=== PATIENT | female | born 1945 | race Caucasian/White ===

== ENCOUNTER 2016-09-26 17:16 | Emergency (ER) | payer MEDICARE, MEDICAID ==
[~2016-09-26] VITALS: Ht 165.1 cm; Wt 89.4 kg
[~2016-09-26 17:16] MED LIST: BACTRIM DS 8001 TA1 PO; BIAXIN500 MG PO; BRIN20TA PO; CLARITIN10 MG PO; CYMBALTA20 MG PO; DOXYCYCLINE100 M3 PO; HYDROCODONE BIT1 T11 PO; MACROBID100 M1 PO; NAPROSYN500 MG PO; NEURONTIN300 MG PO; NEXIUM20 MG PO; NEXIUM40 MG PO; NORCO 5-325 TA1 EACH PO; REXULTI1 MG PO; RITALIN10 MG PO; SYNTHROID,LEV100 MCG PO; ULTRAM50 MG PO; VICODIN 5/500 505 MG PO; VICODIN ES 7501 TAB PO; VISTARIL50 MG PO; VOLTAREN50 MG PO; ZOFRAN4 MG PO; Zofran4 MG PO
[2016-09-26] MEDS ORDERED: CONCERTA54 MG PO (17:28)
[2016-09-26] MEDS ORDERED: 'PARAFON FORTE500 M1 PO (17:35)
[2016-09-26] MEDS ORDERED: NAPROSYN500 MG PO (17:35)
[2016-09-26 18:03] LABS: BILIRUBIN 1+ (NEGATIVE); BLOOD NEGATIVE (NEGATIVE); CLARITY CLEAR (CLEAR); COLOR YELLOW (YELLOW); GLUCOSE NEGATIVE (NEGATIVE); KETONE TRACE (NEGATIVE); LEUKO ESTERASE NEGATIVE (NEGATIVE); NITRITE POSITIVE (NEGATIVE); PROTEIN TRACE (NEGATIVE); SPECIFIC GRAVITY >= 1.030 (1.005-1.030)
[2016-09-26 18:25] LABS: BACTERIA TRACE; WBC 0-2 wbc/hpf (0-5)
[2016-09-26 18:26] LABS: URINE REFLEX COMMENT YES (NO)
[2016-09-26] MEDS ORDERED: MACROBID100 M1 PO (18:27)
[2016-09-26] MEDS ORDERED: DIFLUCAN150 MG PO (18:27)
== END 2016-09-26 18:52 | disposition home or self-care (01) ==
LOC: ED 17:16
PROVIDERS: Nurse Practitioner Family
DX: N39.0 Urinary tract infection, site not specified (principal); M54.42 Lumbago with sciatica, left side; R03.0 Elevated blood-pressure reading, without diagnosis of hypertension; Z88.0 Allergy status to penicillin; Z79.899 Other long term (current) drug therapy

== ENCOUNTER → 2017-03-24 | Outpatient (CLI) | payer MEDICARE, MEDICAID ==
[~2017-03-24] MED LIST changes: +'PARAFON FORTE500 M1 PO; +CONCERTA54 MG PO; +DIFLUCAN150 MG PO
== END | disposition home or self-care (01) ==
LOC: ORTHO 03:18
DX: M19.042 Primary osteoarthritis, left hand (principal); M85.442 Solitary bone cyst, left hand

== ENCOUNTER → 2017-06-04 | Outpatient (CLI) | payer MEDICARE ==
[~2017-06-04] MED LIST changes: +FOCALIN XR10 MG PO; +LEVOTHYROXINE150 MCG PO; +TRINTELLIX20 MG PO
[2017-06-04 10:22] LABS: BASO % 0.6 % (0.0-1.0); EOS # 0.2 10*3/uL (0.0-0.4); EOS % 3.8 % (1.0-4.0); HEMATOCRIT 37.1 % (37.0-47.0); HEMOGLOBIN 12.4 g/dl (12.0-16.0); LYMPH # 2.3 10*3/uL (1.3-4.4); LYMPH % 36.5 % (27.0-41.0); MEAN CELL VOLUME 95.4 fl (81.0-99.0); MEAN CORPUSCULAR HGB 31.9 pg (27.0-31.0); MEAN CORPUSCULAR HGB CONC 33.4 g/dl (33.0-37.0); MEAN PLATELET VOLUME 9.2 fl (9.6-12.3); MONO # 0.5 10*3/uL (0.1-1.0); MONO % 7.4 % (3.0-9.0); NEUT # 3.3 10*3/uL (2.3-7.9); NEUT % 51.4 % (47.0-73.0); PLATELET COUNT AUTOMATED 232 10*3/uL (130-400); RED BLOOD COUNT 3.89 10*6/uL (4.10-5.10); RED CELL DISTRI WIDTH 12.8 % (0-14.5); WHITE BLOOD COUNT 6.3 10*3/uL (4.8-10.8)
[2017-06-04 10:49] LABS: BUN 23 mg/dl (7-24); CHLORIDE 108 mmol/L (98-107); CREATININE 0.97 mg/dL (0.55-1.02); SODIUM 142 mmol/L (136-145)
== END | disposition home or self-care (01) ==
LOC: LAB 08:07
PROVIDERS: Orthopaedic Surgery
DX: Z01.818 Encounter for other preprocedural examination (principal); J98.11 Atelectasis; G56.02 Carpal tunnel syndrome, left upper limb; E55.9 Vitamin D deficiency, unspecified

== ENCOUNTER → 2017-06-10 | Day surgery (SDC) | payer MEDICARE ==
[~2017-06-10] VITALS: Ht 165.1 cm; Wt 86.2 kg
[2017-06-10 07:19] VITALS: BP 140/71
[2017-06-10 09:00] VITALS: BP 132/87
[2017-06-10 09:15] VITALS: BP 143/74
[2017-06-10 09:30] VITALS: BP 130/77
== END | disposition home or self-care (01) ==
LOC: SDC 06-04 08:45
DX: G56.02 Carpal tunnel syndrome, left upper limb (principal); K21.9 Gastro-esophageal reflux disease without esophagitis; F41.9 Anxiety disorder, unspecified; F32.9 Major depressive disorder, single episode, unspecified; E03.9 Hypothyroidism, unspecified; Z98.890 Other specified postprocedural states; Z90.710 Acquired absence of both cervix and uterus

== ENCOUNTER → 2017-10-29 | Outpatient (CLI) | payer MEDICARE | END | disposition home or self-care (01) | LOC: D 10:36 | DX: E66.3 Overweight (principal); Z68.35 Body mass index [BMI] 35.0-35.9, adult ==

== ENCOUNTER 2017-12-02 21:09 | Emergency (ER) | payer MEDICARE ==
[~2017-12-02] VITALS: Ht 165.1 cm; Wt 86.2 kg
[2017-12-02 21:40] LABS: BASO # 0.1 10*3/uL (0.0-0.1); EOS # 0.3 10*3/uL (0.0-0.4); EOS % 3.8 % (1.0-4.0); HEMATOCRIT 34.6 % (37.0-47.0); HEMOGLOBIN 11.4 g/dl (12.0-16.0); LYMPH % 43.4 % (27.0-41.0); MEAN CELL VOLUME 97.5 fl (81.0-99.0); MEAN CORPUSCULAR HGB 32.1 pg (27.0-31.0); MEAN CORPUSCULAR HGB CONC 32.9 g/dl (33.0-37.0); MEAN PLATELET VOLUME 8.3 fl (9.6-12.3); MONO # 0.6 10*3/uL (0.1-1.0); NEUT # 2.9 10*3/uL (2.3-7.9); NEUT % 42.5 % (47.0-73.0); PLATELET COUNT AUTOMATED 224 10*3/uL (130-400); RED BLOOD COUNT 3.55 10*6/uL (4.10-5.10); RED CELL DISTRI WIDTH 13.2 % (0-14.5); WHITE BLOOD COUNT 6.9 10*3/uL (4.8-10.8)
[2017-12-02 21:55] LABS: ALBUMIN 3.4 gm/dl (3.1-4.5); ALKALINE PHOSPHATASE 72 U/L (45-117); BUN 25 mg/dl (7-24); CHLORIDE 108 mmol/L (98-107); CREATININE 0.83 mg/dL (0.55-1.02); POTASSIUM 4.2 mmol/L (3.5-5.1); SGOT/AST 14 IU/L (3-35); SGPT/ALT 15 U/L (12-78); SODIUM 143 mmol/L (136-145); TOTAL PROTEIN 6.7 gm/dL (6.4-8.2)
[2017-12-02 22:37] LABS: BILIRUBIN 1+ (NEGATIVE); BLOOD 3+ (NEGATIVE); CLARITY CLOUDY (CLEAR); COLOR YELLOW (YELLOW); GLUCOSE NEGATIVE (NEGATIVE); KETONE NEGATIVE (NEGATIVE); LEUKO ESTERASE NEGATIVE (NEGATIVE); NITRITE NEGATIVE (NEGATIVE); SPECIFIC GRAVITY >= 1.030 (1.005-1.030); UROBILINOGEN 0.2 E.U./dl (0.2-1.0)
[2017-12-02 22:55] LABS: YEAST 1+
[2017-12-02 22:56] LABS: RBC 21-30 rbc/hpf (0-2)
[2017-12-02] MEDS ORDERED: DIFLUCAN150 MG PO (23:00)
[2017-12-02] MEDS ORDERED: MACROBID100 M1 PO (23:00)
[2017-12-02] MEDS ORDERED: MYCOLOG CREAM 115 GM T (23:00)
== END 2017-12-02 23:42 | disposition home or self-care (01) ==
LOC: ED 21:09
PROVIDERS: Nurse Practitioner Family
DX: N39.0 Urinary tract infection, site not specified (principal); B37.9 Candidiasis, unspecified; Z88.0 Allergy status to penicillin

== ENCOUNTER 2018-03-10 09:40 | Emergency (ER) | payer MEDICARE ==
[~2018-03-10] VITALS: Wt 86.2 kg
[~2018-03-10 09:40] MED LIST changes: +MYCOLOG CREAM 115 GM T
== END 2018-03-10 11:27 | disposition home or self-care (01) ==
LOC: ED 09:40
DX: S63.502A Unspecified sprain of left wrist, initial encounter (principal); Z88.0 Allergy status to penicillin; Z79.899 Other long term (current) drug therapy; W01.0XXA Fall on same level from slipping, tripping and stumbling without subsequent striking against object, initial encounter; Y93.01 Activity, walking, marching and hiking; Y92.009 Unspecified place in unspecified non-institutional (private) residence as the place of occurrence of the external cause; Y99.8 Other external cause status

== ENCOUNTER 2018-12-20 15:58 | Emergency (ER) | payer MEDICARE ==
[~2018-12-20] VITALS: Ht 165.1 cm; Wt 86.2 kg
--- NOTE | ~2018-12-20 | EKG ---
[place], [place] ELECTROCARDIOGRAM REPORT NAME: NASIM BONILLA UNIT #: [id number] ROOM: DOCTOR: EPIPHANY DRAFT REPORT BIRTHDATE: [birth year] [facility] Test Date: 2018-12-20 Test Time: 16:30:32 Pat Name: NASIM BONILLA Department: Room: Gender: [employer] Department Chair: : 1945 Requested By: LANI MURPHY DNP Order Number: [id number] Reading MD: Kameron Kenny MD Measurements Intervals [place] Rate: 84 P: -5 MI: 164 QRS: 19 QRSD: 86 T: 18 QT: 361 QTc: 427 Interpretive Statements Sinus rhythm Baseline wander in lead(s) II,III,aVR,aVL,aVF,V1 Compared to ECG 08/29/2018 07:35:20 Atrial premature complex(es) no longer present T-wave abnormality no longer present Electronically Signed On 12-21-2018 9:40:33 PDT by Kameron Kenny MD CM:EKGRPT:ELECTROCARDIOGRAM REPORT [id number] LANI MURPHY DNP EPIPHANY DRAFT REPORT LANI MURPHY DNP
[~2018-12-20 15:58] MED LIST changes: +CYMBALTA30 MG PO; +ZANAFLEX4 M1 PO
[2018-12-20 16:42] LABS: BASO % 0.5 % (0.0-1.0); EOS % 0.4 % (1.0-4.0); HEMATOCRIT 36.2 % (37.0-47.0); HEMOGLOBIN 11.9 g/dl (12.0-16.0); LYMPH # 1.2 10*3/uL (1.3-4.4); MEAN CELL VOLUME 95.3 fl (81.0-99.0); MEAN CORPUSCULAR HGB 31.3 pg (27.0-31.0); MEAN CORPUSCULAR HGB CONC 32.9 g/dl (33.0-37.0); MEAN PLATELET VOLUME 9.2 fl (9.6-12.3); MONO # 0.4 10*3/uL (0.1-1.0); MONO % 4.6 % (3.0-9.0); NEUT # 6.4 10*3/uL (2.3-7.9); NEUT % 79.3 % (47.0-73.0); PLATELET COUNT AUTOMATED 230 10*3/uL (130-400); RED CELL DISTRI WIDTH 12.8 % (0-14.5); WHITE BLOOD COUNT 8.1 10*3/uL (4.8-10.8)
[2018-12-20 16:51] LABS: ACT PARTIAL THROMBO TIME 24.2 SECONDS (20.8-31.5); INTERNATIONAL NORM RATIO 0.9 (2.0-3.5)
[2018-12-20 16:58] LABS: ALBUMIN 3.4 gm/dl (3.1-4.5); ALKALINE PHOSPHATASE 94 U/L (45-117); BUN 16 mg/dl (7-24); CHLORIDE 106 mmol/L (98-107); CREATININE 0.85 mg/dL (0.55-1.02); LIPASE 44 U/L (73-393); POTASSIUM 4.5 mmol/L (3.5-5.1); SGOT/AST 18 IU/L (3-35); SGPT/ALT 19 U/L (12-78); SODIUM 140 mmol/L (136-145)
[2018-12-20 17:00] LABS: TROPONIN I < 0.015 ng/ml (<0.045)
== END 2018-12-20 18:05 | disposition short-term general hospital (02) ==
LOC: ED 15:58
PROVIDERS: Nurse Practitioner Family
DX: R53.1 Weakness (principal); R47.81 Slurred speech; J02.9 Acute pharyngitis, unspecified; R06.02 Shortness of breath; E03.9 Hypothyroidism, unspecified; K21.9 Gastro-esophageal reflux disease without esophagitis; G89.29 Other chronic pain; Z88.0 Allergy status to penicillin; Z79.899 Other long term (current) drug therapy; Z90.710 Acquired absence of both cervix and uterus

== ENCOUNTER → 2021-08-23 | Outpatient (CLI) | payer MEDICARE, MEDICAID | END | disposition home or self-care (01) | LOC: RAD 10:58 | PROVIDERS: ATTEND Emergency Medicine | DX: M19.022 Primary osteoarthritis, left elbow (principal) ==

== ENCOUNTER → 2021-10-17 | Outpatient (CLI) | payer MEDICARE, MEDICAID | END | disposition home or self-care (01) | LOC: ORTHO 01:56 | PROVIDERS: ATTEND Orthopaedic Surgery | DX: M79.642 Pain in left hand (principal) ==

== ENCOUNTER → 2021-11-06 | Day surgery (SDC) | payer MEDICARE, MEDICAID ==
[2021-11-03 12:11] LABS: BASO # 0.1 10*3/uL (0.0-0.1); BASO % 1.1 % (0.0-1.0); EOS # 0.2 10*3/uL (0.0-0.4); EOS % 3.7 % (1.0-4.0); HEMATOCRIT 39.7 % (37.0-47.0); LYMPH # 1.9 10*3/uL (1.3-4.4); MEAN CELL VOLUME 93.4 fl (81.0-99.0); MEAN CORPUSCULAR HGB 30.8 pg (27.0-31.0); MEAN PLATELET VOLUME 9.2 fl (9.6-12.3); MONO # 0.4 10*3/uL (0.1-1.0); NEUT # 3.1 10*3/uL (2.3-7.9); NEUT % 54.8 % (47.0-73.0); PLATELET COUNT AUTOMATED 275 10*3/uL (130-400); RED BLOOD COUNT 4.25 10*6/uL (4.10-5.10); RED CELL DISTRI WIDTH 12.8 % (0-14.5); WHITE BLOOD COUNT 5.6 10*3/uL (4.8-10.8)
[2021-11-03 12:57] LABS: BUN 16 mg/dl (7-24); CHLORIDE 110 mmol/L (98-107); POTASSIUM 3.8 mmol/L (3.5-5.1); SODIUM 142 mmol/L (136-145)
[~2021-11-06] VITALS: Ht 165.1 cm; Wt 86.2 kg
[~2021-11-06] MED LIST changes: +CYMBALTA60 MG PO; +GABAPENTIN600 MG PO; +LEVOTHYROXINE175 MCG PO; +OXAYDO7.5 MG PO
[2021-11-06 07:12] VITALS: BP 142/75
[2021-11-06 08:32] VITALS: BP 121/76
[2021-11-06 08:47] VITALS: BP 120/76
[2021-11-06 09:02] VITALS: BP 137/75
== END | disposition home or self-care (01) ==
LOC: SDC 11-03 13:00
PROVIDERS: ATTEND Orthopaedic Surgery
DX: M65.331 Trigger finger, right middle finger (principal); M65.841 Other synovitis and tenosynovitis, right hand; M19.032 Primary osteoarthritis, left wrist; F32.9 Major depressive disorder, single episode, unspecified; F41.9 Anxiety disorder, unspecified; K21.9 Gastro-esophageal reflux disease without esophagitis; M79.7 Fibromyalgia; E03.9 Hypothyroidism, unspecified; Z86.73 Personal history of transient ischemic attack (TIA), and cerebral infarction without residual deficits; Z20.822 Contact with and (suspected) exposure to COVID-19; Z79.899 Other long term (current) drug therapy

== ENCOUNTER → 2021-12-10 | Outpatient (CLI) | payer MEDICARE, MEDICAID | END | disposition home or self-care (01) | LOC: RAD 12:04 | PROVIDERS: ATTEND Nurse Practitioner Gerontology | DX: M50.10 Cervical disc disorder with radiculopathy, unspecified cervical region (principal) ==

== ENCOUNTER → 2021-12-23 | Outpatient (CLI) | payer MEDICARE, MEDICAID | END | disposition home or self-care (01) | LOC: RAD 09:01 | PROVIDERS: ATTEND Emergency Medicine | DX: M17.0 Bilateral primary osteoarthritis of knee (principal) ==

== ENCOUNTER 2022-01-17 14:14 | Emergency (ER) | payer MEDICARE ==
[~2022-01-17] VITALS: Ht 165.1 cm; Wt 88.5 kg
[2022-01-17] MEDS ORDERED: VOLTAREN ARTHRI20 GM T (15:54)
== END 2022-01-17 16:09 | disposition home or self-care (01) ==
LOC: ED 14:14
DX: M25.561 Pain in right knee (principal); M79.651 Pain in right thigh; G89.29 Other chronic pain; Z98.890 Other specified postprocedural states; Z90.710 Acquired absence of both cervix and uterus; Z79.899 Other long term (current) drug therapy; Z88.0 Allergy status to penicillin

== ENCOUNTER → 2022-02-04 | Outpatient (CLI) | payer MEDICARE, MEDICAID ==
[~2022-02-04] MED LIST changes: +VOLTAREN ARTHRI20 GM T
== END | disposition home or self-care (01) ==
LOC: MRI 08:12
PROVIDERS: ATTEND Nurse Practitioner Gerontology
DX: M47.812 Spondylosis without myelopathy or radiculopathy, cervical region (principal); M48.02 Spinal stenosis, cervical region

== ENCOUNTER 2022-03-19 14:11 | Emergency (ER) | payer OTHER ==
[~2022-03-19] VITALS: Ht 165.1 cm; Wt 89.8 kg
[2022-03-19] MEDS ORDERED: CITALOPRAM20 MG PO (14:29)
[2022-03-19] MEDS ORDERED: OXYCODONE-ACET1 EACH PO (14:30)
[2022-03-19] MEDS ORDERED: IBUPROFEN600 MG PO (17:51)
== END 2022-03-19 17:55 | disposition home or self-care (01) ==
LOC: ED 14:11
DX: S52.514A Nondisplaced fracture of right radial styloid process, initial encounter for closed fracture (principal); Z88.0 Allergy status to penicillin; Z79.899 Other long term (current) drug therapy; Z90.710 Acquired absence of both cervix and uterus; Z90.89 Acquired absence of other organs; Z98.890 Other specified postprocedural states; W18.39XA Other fall on same level, initial encounter; Y93.89 Activity, other specified; Y92.89 Other specified places as the place of occurrence of the external cause; Y99.8 Other external cause status

== ENCOUNTER → 2022-03-23 | Outpatient (CLI) | payer OTHER ==
[~2022-03-23] MED LIST changes: +CITALOPRAM20 MG PO; +IBUPROFEN600 MG PO; +OXYCODONE-ACET1 EACH PO
== END | disposition home or self-care (01) ==
LOC: RAD 14:29
PROVIDERS: ATTEND Orthopaedic Surgery
DX: M25.421 Effusion, right elbow (principal)

== ENCOUNTER → 2022-04-03 | Outpatient (CLI) | payer OTHER | END | disposition home or self-care (01) | LOC: ORTHO 00:42 | PROVIDERS: ATTEND Orthopaedic Surgery | DX: M79.601 Pain in right arm (principal) ==

== ENCOUNTER → 2022-04-17 | Outpatient (CLI) | payer OTHER | END | disposition home or self-care (01) | LOC: ORTHO 02:15 | PROVIDERS: ATTEND Orthopaedic Surgery | DX: S52.131D Displaced fracture of neck of right radius, subsequent encounter for closed fracture with routine healing (principal); X58.XXXD Exposure to other specified factors, subsequent encounter ==

== ENCOUNTER → 2022-06-16 | Outpatient (CLI) | payer OTHER | END | disposition home or self-care (01) | LOC: MAMMO 10:50 | PROVIDERS: ATTEND Emergency Medicine | DX: Z12.31 Encounter for screening mammogram for malignant neoplasm of breast (principal) ==

== ENCOUNTER 2022-07-31 10:10 | Emergency (ER) | payer OTHER ==
[~2022-07-31] VITALS: Ht 165.1 cm; Wt 86.2 kg
[2022-07-31] MEDS ORDERED: MEDROL DOSEPAK4 MG PO (11:05)
== END 2022-07-31 11:11 | disposition home or self-care (01) ==
LOC: ED 10:10
DX: M54.31 Sciatica, right side (principal); Z88.0 Allergy status to penicillin; Z79.899 Other long term (current) drug therapy; Z90.710 Acquired absence of both cervix and uterus; Z90.89 Acquired absence of other organs; Z98.890 Other specified postprocedural states

== ENCOUNTER 2022-10-26 13:45 | Emergency (ER) | payer OTHER ==
[~2022-10-26] VITALS: Ht 162.5 cm; Wt 86.2 kg
[~2022-10-26 13:45] MED LIST changes: +MEDROL DOSEPAK4 MG PO
[2022-10-26 15:13] LABS: BASO % 0.4 % (0.0-1.0); EOS # 0.3 10*3/uL (0.0-0.4); EOS % 4.2 % (1.0-4.0); HEMATOCRIT 37.7 % (37.0-47.0); LYMPH # 1.8 10*3/uL (1.3-4.4); MEAN CELL VOLUME 96.7 fl (81.0-99.0); MEAN CORPUSCULAR HGB CONC 32.1 g/dl (33.0-37.0); MEAN PLATELET VOLUME 8.9 fl (9.6-12.3); MONO # 0.4 10*3/uL (0.1-1.0); MONO % 5.6 % (3.0-9.0); NEUT # 4.4 10*3/uL (2.3-7.9); NEUT % 63.7 % (47.0-73.0); PLATELET COUNT AUTOMATED 175 10*3/uL (130-400); RED CELL DISTRI WIDTH 13.7 % (0-14.5); WHITE BLOOD COUNT 6.9 10*3/uL (4.8-10.8)
[2022-10-26 15:15] LABS: BILIRUBIN Negative (Negative); BLOOD Negative (Negative); CLARITY Cloudy (Clear); COLOR Dark Yellow (Yellow); GLUCOSE Negative (Negative); KETONE Trace (Negative); LEUKO ESTERASE 2+ (Negative); NITRITE Negative (Negative); SPECIFIC GRAVITY >= 1.030 (1.001-1.030)
[2022-10-26 15:28] LABS: ALKALINE PHOSPHATASE 121 U/L (46-116); BUN 17 mg/dl (9-23); CHLORIDE 106 mmol/L (98-107); POTASSIUM 4.6 mmol/L (3.4-5.1); SGPT/ALT 26 U/L (10-49); TOTAL PROTEIN 6.6 gm/dL (6.0-8.0)
[2022-10-26 15:35] LABS: BACTERIA 2+
[2022-10-26 15:36] LABS: MUCOUS 1+; RBC 0-2 rbc/hpf (0-2)
[2022-10-26] MEDS ORDERED: MACROBID100 M1 PO (16:24)
== END 2022-10-26 18:29 | disposition home or self-care (01) ==
LOC: ED 13:45
PROVIDERS: Nurse Practitioner Family
DX: N39.0 Urinary tract infection, site not specified (principal); K21.9 Gastro-esophageal reflux disease without esophagitis; F41.9 Anxiety disorder, unspecified; F32.A Depression, unspecified; G45.9 Transient cerebral ischemic attack, unspecified; M79.7 Fibromyalgia; Z88.0 Allergy status to penicillin; Z90.710 Acquired absence of both cervix and uterus; Z90.89 Acquired absence of other organs; Z98.890 Other specified postprocedural states

== ENCOUNTER 2023-05-04 15:37 | Emergency (ER) | payer OTHER ==
[~2023-05-04] VITALS: Ht 165.1 cm; Wt 81.6 kg
[2023-05-04 16:30] LABS: BILIRUBIN Negative (Negative); BLOOD Negative (Negative); CLARITY Clear (Clear); COLOR Dark Yellow (Yellow); GLUCOSE Negative (Negative); KETONE Trace (Negative); LEUKO ESTERASE 3+ (Negative); NITRITE Negative (Negative)
[2023-05-04 16:47] LABS: BASO % 0.5 % (0.0-1.0); EOS # 0.2 10*3/uL (0.0-0.4); EOS % 1.8 % (1.0-4.0); HEMATOCRIT 37.2 % (37.0-47.0); LYMPH # 2.1 10*3/uL (1.3-4.4); LYMPH % 25.6 % (27.0-41.0); MEAN CELL VOLUME 91.9 fl (81.0-99.0); MEAN CORPUSCULAR HGB 31.4 pg (27.0-31.0); MEAN CORPUSCULAR HGB CONC 34.1 g/dl (33.0-37.0); MEAN PLATELET VOLUME 9.6 fl (9.6-12.3); MONO # 0.6 10*3/uL (0.1-1.0); MONO % 7.6 % (3.0-9.0); NEUT # 5.3 10*3/uL (2.3-7.9); NEUT % 64.3 % (47.0-73.0); PLATELET COUNT AUTOMATED 243 10*3/uL (130-400); RED BLOOD COUNT 4.05 10*6/uL (4.10-5.10); WHITE BLOOD COUNT 8.2 10*3/uL (4.8-10.8)
[2023-05-04 16:48] LABS: BACTERIA 1+; MUCOUS 1+; WBC 31-40 wbc/hpf (0-5)
[2023-05-04 17:08] LABS: ALKALINE PHOSPHATASE 158 U/L (46-116); BUN 14 mg/dl (9-23); CHLORIDE 106 mmol/L (98-107); SGPT/ALT 14 U/L (10-49); TOTAL PROTEIN 6.7 gm/dL (6.0-8.0)
[2023-05-04] MEDS ORDERED: LEVOFLOXACIN750 M2 PO (17:23)
== END 2023-05-04 17:57 | disposition home or self-care (01) ==
LOC: ED 15:37
PROVIDERS: Student in an Organized Health Care Education/Training Program
DX: N39.0 Urinary tract infection, site not specified (principal); K21.9 Gastro-esophageal reflux disease without esophagitis; F41.9 Anxiety disorder, unspecified; F32.A Depression, unspecified; Z86.73 Personal history of transient ischemic attack (TIA), and cerebral infarction without residual deficits; M79.7 Fibromyalgia; E03.9 Hypothyroidism, unspecified; Z88.0 Allergy status to penicillin; Z90.710 Acquired absence of both cervix and uterus; Z90.89 Acquired absence of other organs; Z98.890 Other specified postprocedural states

== ENCOUNTER 2023-07-05 17:41 | Emergency (ER) | payer OTHER ==
[~2023-07-05] VITALS: Ht 165.1 cm; Wt 79.4 kg
[~2023-07-05 17:41] MED LIST changes: +LEVOFLOXACIN750 M2 PO
[2023-07-05 18:51] LABS: BILIRUBIN Negative (Negative); BLOOD Negative (Negative); CLARITY Clear (Clear); COLOR Yellow (Yellow); GLUCOSE Negative (Negative); KETONE Negative (Negative); LEUKO ESTERASE Negative (Negative); NITRITE Negative (Negative)
[2023-07-05 18:53] LABS: BASO % 0.5 % (0.0-1.0); EOS # 0.2 10*3/uL (0.0-0.4); EOS % 2.2 % (1.0-4.0); HEMATOCRIT 38.1 % (37.0-47.0); LYMPH # 2.8 10*3/uL (1.3-4.4); LYMPH % 33.6 % (27.0-41.0); MEAN CELL VOLUME 91.1 fl (81.0-99.0); MEAN CORPUSCULAR HGB 30.4 pg (27.0-31.0); MEAN CORPUSCULAR HGB CONC 33.3 g/dl (33.0-37.0); MEAN PLATELET VOLUME 9.9 fl (9.6-12.3); MONO # 0.7 10*3/uL (0.1-1.0); MONO % 8.5 % (3.0-9.0); NEUT # 4.6 10*3/uL (2.3-7.9); PLATELET COUNT AUTOMATED 236 10*3/uL (130-400); RED BLOOD COUNT 4.18 10*6/uL (4.10-5.10); RED CELL DISTRI WIDTH 12.6 % (0-14.5); WHITE BLOOD COUNT 8.3 10*3/uL (4.8-10.8)
[2023-07-05 19:05] LABS: RBC 0-2 rbc/hpf (0-2); WBC 0-2 wbc/hpf (0-5)
[2023-07-05 19:06] LABS: BACTERIA TRACE
[2023-07-05 19:12] LABS: ALKALINE PHOSPHATASE 121 U/L (46-116); BUN 14 mg/dl (9-23); CHLORIDE 108 mmol/L (98-107); POTASSIUM 3.7 mmol/L (3.4-5.1); SGPT/ALT 18 U/L (5-49); TOTAL PROTEIN 6.8 gm/dL (6.0-8.0)
[2023-07-05] MEDS ORDERED: CEPHALEXIN500 M1 PO (19:33)
== END 2023-07-05 19:46 | disposition home or self-care (01) ==
LOC: ED 17:41
PROVIDERS: Physician Assistant Medical
DX: J34.89 Other specified disorders of nose and nasal sinuses (principal); K21.9 Gastro-esophageal reflux disease without esophagitis; F41.9 Anxiety disorder, unspecified; F32.A Depression, unspecified; Z86.73 Personal history of transient ischemic attack (TIA), and cerebral infarction without residual deficits; E03.9 Hypothyroidism, unspecified; M79.7 Fibromyalgia; Z88.0 Allergy status to penicillin; Z90.710 Acquired absence of both cervix and uterus; Z90.89 Acquired absence of other organs; Z98.890 Other specified postprocedural states; Z20.822 Contact with and (suspected) exposure to COVID-19

== ENCOUNTER 2023-07-15 12:30 | Emergency (ER) | payer OTHER ==
[~2023-07-15] VITALS: Wt 79.4 kg
[~2023-07-15 12:30] MED LIST changes: +CEPHALEXIN500 M1 PO
== END 2023-07-15 14:57 | disposition home or self-care (01) ==
LOC: ED 12:30
DX: S29.011A Strain of muscle and tendon of front wall of thorax, initial encounter (principal); K21.9 Gastro-esophageal reflux disease without esophagitis; F41.9 Anxiety disorder, unspecified; F32.A Depression, unspecified; Z86.73 Personal history of transient ischemic attack (TIA), and cerebral infarction without residual deficits; E03.9 Hypothyroidism, unspecified; M79.7 Fibromyalgia; Z88.0 Allergy status to penicillin; Z90.89 Acquired absence of other organs; Z90.710 Acquired absence of both cervix and uterus; Z98.890 Other specified postprocedural states; X58.XXXA Exposure to other specified factors, initial encounter; Y93.89 Activity, other specified; Y92.89 Other specified places as the place of occurrence of the external cause; Y99.8 Other external cause status

== ENCOUNTER 2024-07-20 09:18 | Emergency (ER) | payer OTHER ==
[~2024-07-20] VITALS: Ht 165.1 cm; Wt 72.6 kg
[2024-07-20] MEDS ORDERED: PERCOCET 5-3251 EACH PO (09:59)
== END 2024-07-20 10:07 | disposition home or self-care (01) ==
LOC: ED 09:18
DX: S92.324A Nondisplaced fracture of second metatarsal bone, right foot, initial encounter for closed fracture (principal); S92.334A Nondisplaced fracture of third metatarsal bone, right foot, initial encounter for closed fracture; I10 Essential (primary) hypertension; E78.5 Hyperlipidemia, unspecified; K21.9 Gastro-esophageal reflux disease without esophagitis; F41.9 Anxiety disorder, unspecified; F32.A Depression, unspecified; Z86.73 Personal history of transient ischemic attack (TIA), and cerebral infarction without residual deficits; E03.9 Hypothyroidism, unspecified; M79.7 Fibromyalgia; Z88.0 Allergy status to penicillin; Z98.890 Other specified postprocedural states; Z90.89 Acquired absence of other organs; Z90.710 Acquired absence of both cervix and uterus; W19.XXXA Unspecified fall, initial encounter; Y93.89 Activity, other specified; Y92.89 Other specified places as the place of occurrence of the external cause; Y99.8 Other external cause status

== ENCOUNTER → 2024-08-07 | Outpatient (CLI) | payer OTHER ==
[~2024-08-07] MED LIST changes: +PERCOCET 5-3251 EACH PO
== END | disposition home or self-care (01) ==
LOC: ORTHO 03:56
PROVIDERS: ATTEND Orthopaedic Surgery
DX: S92.334D Nondisplaced fracture of third metatarsal bone, right foot, subsequent encounter for fracture with routine healing (principal); S92.344D Nondisplaced fracture of fourth metatarsal bone, right foot, subsequent encounter for fracture with routine healing; X58.XXXD Exposure to other specified factors, subsequent encounter

== ENCOUNTER → 2024-08-28 | Outpatient (CLI) | payer OTHER | END | disposition home or self-care (01) | LOC: ORTHO 04:02 | PROVIDERS: ATTEND Orthopaedic Surgery | DX: S92.334D Nondisplaced fracture of third metatarsal bone, right foot, subsequent encounter for fracture with routine healing (principal); S92.344D Nondisplaced fracture of fourth metatarsal bone, right foot, subsequent encounter for fracture with routine healing; X58.XXXD Exposure to other specified factors, subsequent encounter ==

== ENCOUNTER → 2025-06-06 | Outpatient (CLI) | payer OTHER ==
[~2025-06-06] MED LIST changes: +ASPIRIN CHILDRE81 MG PO; +AUVELITY ER 451 EACH PO; +CYCLOBENZAPRINE10 MG PO; +DONEPEZIL HYDROC5 MG PO; +HYDROXYZINE PAM25 M1 PO; +LEVOTHYROXINE100 MC1 PO; +LEVOTHYROXINE112 MCG PO; +OMNICEF300 MG PO; +ONDANSETRON HYDR4 MG PO; +PANTOPRAZOLE SO40 MG PO; +ROSUVASTATIN CA20 MG PO; +TRAZODONE100 MG PO
== END | disposition home or self-care (01) ==
LOC: ORTHO 03:50
PROVIDERS: ATTEND Orthopaedic Surgery
DX: M17.11 Unilateral primary osteoarthritis, right knee (principal); M85.88 Other specified disorders of bone density and structure, other site; M25.561 Pain in right knee